=== PATIENT | male | born 1980 | race Caucasian/White ===

== ENCOUNTER 2021-10-28 09:33 | Emergency (ER) | payer MEDICAID ==
[~2021-10-28] VITALS: Ht 180.3 cm; Wt 100.0 kg
[2021-10-28 10:27] VITALS: BP 152/100
== END 2021-10-28 12:59 | disposition home or self-care (01) ==
LOC: ER 09:33
DX: Z48.02 Encounter for removal of sutures (principal)
CPT/HCPCS: 99281